=== PATIENT | female | born 1955 | race Caucasian/White ===

== ENCOUNTER → 2016-05-31 | Outpatient (CLI) | payer BC ==
--- NOTE | 2016-05-31 17:09 | US ---
Pelvic Sonogram (With Transvaginal) Clinical Indications: Postcoital spotting. The patient has had a supracervical hysterectomy. Technique: Transabdominal and endovaginal exams. Transvaginal exam is added to better evaluate the uterus and ovaries. Findings: The uterus is absent. The residual cervix is unremarkable except for a small amount of fl uid in the endocervical canal. There are no adnexal masses. There is no evidence of fibroids in the residual cervix. Impression: No sonographic evidence to explain the patient's postcoital spotting. Prior supracervic al hysterectomy.
== END ==
LOC: FIMAGING 07:11
PROVIDERS: ATTEND Obstetrics & Gynecology
DX: N92.0 Excessive and frequent menstruation with regular cycle (principal)